=== PATIENT | female | born 1990 | race Caucasian/White ===

== ENCOUNTER → 2017-02-21 | Outpatient (CLI) | payer BC ==
--- NOTE | 2017-02-21 12:13 | REP ---
PELVIC ULTRASOUND: Real-time sonographic evaluation of the pelvis is performed utilizing transabdominal and endovaginal technique. The urinary bladder measures 7.8 x 5.7 x 8.3 cm. The uterus measures 6.7 x 3. X 4.6 cm. Endometrial thickness is 7 mm. There is no endometrial fluid collection. The ovaries are normal in size and echotexture, right ovary measuring 4.3 x 1.7 x 2.9 cm and the left ovary 3.5 x 1.8 x 2.5 cm. There is no adnexal mass or free fluid. There is no evidence of ovarian torsion with blood flow seen in each ovary with duplex Doppler evaluation, RI of the right ovary 0.53 and left ovary 0.50. Trace free fluid is seen, which is likely physiologic in nature. IMPRESSION: Negative pelvic ultrasound. Signed by Sedrick Sanches MD 02/21/2017 12:30 P
== END ==
LOC: M RAD 10:51
PROVIDERS: ATTEND Family Medicine
DX: R10.2 Pelvic and perineal pain (principal)

== ENCOUNTER → 2017-05-08 | Outpatient (REF) | payer BC | LOC: M LAB REF 17:15 | PROVIDERS: ATTEND Family Medicine | DX: Z12.4 Encounter for screening for malignant neoplasm of cervix (principal) ==